=== PATIENT | female | born 1985 | race Two or more races ===

== ENCOUNTER 2020-07-15 18:12 | Emergency (ER) | payer OTHER ==
[~2020-07-15] VITALS: Ht 182.9 cm; Wt 113.4 kg
[2020-07-15] MEDS ORDERED: NORFLEX100MG PO (20:02)
[2020-07-15] MEDS ORDERED: DICLOFENAC SODI75 MG PO (20:02)
== END 2020-07-15 20:19 | disposition home or self-care (01) ==
LOC: ER 18:12
DX: S13.4XXA Sprain of ligaments of cervical spine, initial encounter (principal); V49.88XA Car occupant (driver) (passenger) injured in other specified transport accidents, initial encounter; Y93.89 Activity, other specified; Y92.488 Other paved roadways as the place of occurrence of the external cause; Y99.8 Other external cause status